=== PATIENT | female | born 1945 | race Caucasian/White ===

== ENCOUNTER 2023-04-29 11:32 | Day surgery (SDC) | payer MEDICARE, SELFPAY ==
[2023-04-24 12:44] VITALS: BMI 21.3
[2023-04-24 13:22] VITALS: BMI 21.8
[2023-04-29 11:54] VITALS: BMI 21.3
[2023-04-29 12:06] VITALS: BP 144/69; PULSE 102; RESP 16; TEMP 37; O2SAT 99
--- NOTE | 2023-04-29 12:14 | P.CONAN_ITS ---
[facility] Past Medical History Medical History (Updated 04/24/23 @ 13:27 by Laurie Santana RN) Osteoporosis Thyroid eye disease Pleurisy Palpitations Visual impairment Back pain Refusal of blood transfusion for reasons of conscience Catracho's thyroiditis Family History Family history of problems with anesthesia: No Surgical History Surgical History (Updated 04/24/23 @ 13:26 by Laurie Santana, RN) Hx of colonoscopy Hx of foot surgery (~2010) History of bunionectomy of left great toe (~2008) History of Problems with Anesthesia: No Social History Social History (Updated 04/24/23 @ 13:22 by Laurie Santana, BAO) Are you a primary acute care surgeon to a significant other at home: No Do you presently have visiting nurse or other home services: No Patient Tobacco Use Status: Former Tobacco user Quit Date: 1984 Tobacco use type: Cigarette Use of substances other than those prescribed or required for medical reasons: No Have you been hit, kicked, punched, or otherwise hurt by someone within the past year? If so, by whom?: No Are you DNR?: No Advance Directives: No Advance Directives Information Provided: Yes Advance Directives on File: No Nutrition Risks: No Nutritional Risk Meds Allergies Allergy/AdvReac Type Severity Reaction Status Date / Time cefdinir Allergy Severe Anaphylaxis Verified 04/24/23 13:25 amoxicillin Allergy Rash Verified 04/24/23 13:25 Home Medications Medication Instructions Recorded Confirmed Last Taken Type acetaminophen 325 mg capsule 650 mg PO Q6H PRN Pain 04/24/23 04/24/23 Unknown History cholecalciferol (vitamin D3) 50 50 mcg PO DAILY 04/24/23 04/24/23 Unknown His tory mcg (2,000 unit) capsule (Vitamin D3) cyclosporine 0.09 % eye drops in a 1 drp ophthalmic (eye) Q12H 04/24/23 04/24/23 Unknown History dropperette (Cequa) levothyroxine 100 mcg tablet 100 mcg PO DAILY 04/24/23 04/24/23 Unknown History Exam Height,Weight and Vital Signs: Height 5 ft 6.5 in Weight 60.781 kg Last Vital Signs Temp 98.6 F 04/29/23 12:06 Pulse 102 H 04/29/23 12:06 Resp 16 04/29/23 12:06 BP 144/69 H 04/29/23 12:06 Pulse Ox 99 04/29/23 12:06 O2 Del Method Room Air 04/29/23 12:06 Airway Mallampati Class: II TM Dist: >3cm Neck ROM: Full Heart: rrr Lungs: cta b/l Assessment and Plan Assessment Anesthesia Assessment: Anesthesia Plan Discussed, Smoking Cess. Discussed and Chart Reviewed Final Anesthetic Review Family History of Problems with Anesthesia: No History of Problems with Anesthesia: No NPO: Yes ASA Class: II and III Final Preanesthetic Review: No Changes in Pt Med Stat, Meds/Allgs Chart Reviewed, Consent Obtained/Reviewed and Anes Risks/Benef Reviewed Patient Risk: Intermediate Procedure Risk: Intermediate Anesthetic Plan Anesthetic Plan: GA Disposition: Standard PACU
--- NOTE | 2023-04-29 13:41 | P.OPHTHAL_ITS ---
Ophthalmology Operative Note Date of Service: 04/29/23 Narrative: Diagnosis thyroid related ophthalmopathy. Procedures 1. Recession of right inferior rectus muscle 5 mm. 2. Recession of left inferior rectus muscle [address] Colón. Anesthesia general. Complications none. The patient th Vicryl sutures. to elevation. as brought to the operative room placed under general anesthesia. The eyes were prepped and draped in the usual sterile ophthalmic fashion. A lid speculum was placed in the right eye and a peritomy was created around the inferior rectus muscle. The inferior rectus muscle was dissected free of its overlying fascial attachments and placed on a large muscle hooks. Forced ductions revealed [id number] resistance to elevation. The muscle was secured with a double-armed Vicryl suture and disinserted from the globe. It was allowed to recess and found to be approximately 5 mm behind the original insertion where was secured with the double-armed Vicryl suture. The conjunctiva was closed with interrupted Vicryl sutures. Lid speculum was then t ransferred to the left eye where a peritomy was created around the inferior rectus muscle. The muscle was hooked and dissected free of its overlying fascial attachments. Forced ductions revealed severe resistance to elevation. It was secured at its insertion with a double-armed Vicryl suture and disinserted from the globe. It recessed to a position approximately 8 mm behind the original insertion where was secured with a double-armed Vicryl suture. Conjunctiva was closed with interrupted Vicryl sutures. The patient was then awoken from general anesthesia and discharged to postoperative recovery in good condition.
[2023-04-29 13:49] VITALS: BP 159/83; PULSE 110; RESP 16; TEMP 36.4; O2SAT 100
[2023-04-29 13:54] VITALS: BP 160/74; PULSE 100; RESP 16; O2SAT 100
[2023-04-29 13:59] VITALS: BP 160/83; PULSE 100; RESP 16; O2SAT 100
[2023-04-29 14:04] VITALS: BP 152/87; PULSE 100; RESP 18; TEMP 37.1; O2SAT 100
[2023-04-29 14:19] VITALS: BP 161/94; PULSE 104; RESP 18; TEMP 36.7; O2SAT 99
== END 2023-04-29 15:37 | disposition home or self-care (01) ==
PROVIDERS: PCP Physician Assistant Medical; Visit Provider Ophthalmology
PROC: (CPT 67314; principal; 2023-04-29 13:10)
DX: H05.20 Unspecified exophthalmos (principal); E05.00 Thyrotoxicosis with diffuse goiter without thyrotoxic crisis or storm; E06.3 Autoimmune thyroiditis; Z88.1 Allergy status to other antibiotic agents; Z79.899 Other long term (current) drug therapy; Z53.1 Procedure and treatment not carried out because of patient's decision for reasons of belief and group pressure; Z87.891 Personal history of nicotine dependence
CPT/HCPCS: 67314; J0131; J1100; J1596; J2371; J2405; J2704; J3010